=== PATIENT | female | born 1955 | race Caucasian/White ===

== ENCOUNTER 2017-11-18 01:24 | Outpatient (CLI) | payer BC, SELFPAY ==
[2017-11-18 07:57] LABS: Hemoglobin A1C 5.7 % (4.5-6.2)
== END 2017-11-18 01:44 ==
DX: E11.9 Type 2 diabetes mellitus without complications (principal); I10 Essential (primary) hypertension
CPT/HCPCS: 36415; 83036

== ENCOUNTER 2018-04-23 01:19 | Outpatient (CLI) | payer MEDICARE, SELFPAY ==
[2018-04-23 08:37] LABS: Hemoglobin A1C 5.9 % (4.5-6.2)
[2018-04-23 08:42] LABS: ALT 31 U/L (12-78); AST 18 U/L (15-37); Albumin 3.6 g/dL (3.4-5.0); Alkaline Phosphatase 77 U/L (46-116); Anion Gap 11.7 mmol/L (3-11); BUN 16 mg/dL (7-18); Bilirubin, Total 0.4 mg/dL (0.2-1.0); CO2 25.3 mmol/L (21.0-32.0); CREATININE 0.73 mg/dL (0.55-1.02); Calcium 9.3 mg/dL (8.5-10.1); Chloride 104 mmol/L (98-107); Glucose 100 mg/dL (70-100); Potassium 3.7 mmol/L (3.5-5.1); Sodium 141 mmol/L (136-145); Total Protein 7.7 g/dL (6.4-8.2)
== END 2018-04-23 01:39 ==
DX: E11.9 Type 2 diabetes mellitus without complications (principal); I10 Essential (primary) hypertension
CPT/HCPCS: 36415; 80053; 83036

== ENCOUNTER 2019-02-17 02:40 | Outpatient (CLI) | payer MEDICARE, SELFPAY ==
--- NOTE | 2019-02-17 07:17 | DI.MAMMO_ITS ---
EXAM: MG MAMMO SCREENING CLINICAL HISTORY: screening,Z12.31. TECHNIQUE: Full field digital CC and MLO mammographic images were obtained with 3D tomosynthesis and utilizing computer aided detection (CAD). COMPARISON: 2016 FINDINGS: Breast Density - Category B - Scattered areas of fibroglandular density Masses/Architectural Distortion: None seen. Microcalcifications: No suspicious pleomorphic-type calcifications are seen. Skin Thickening/Nipple Retraction: None. Axilla: Unremarkable. IMPRESSION: 1. BI-RADS category 1, negative. No significant interval change with no specific features of maligna ncy noted. 2. Unless there is more urgent need, screening mammography is recommended, as per [employer] guidelines. BI-RADS Cat 1 - Negative Breast Density - Category B - Scattered areas of fibroglandular density A negative radiographic report should not delay biopsy if a dominant or clinically suspicious mass is present. Up to ten percent of cancers are not identified on mammography. A negative report may reinforce clinical impression. Adenosis and dense breasts may obscure an underlying neoplasm. False positive reports average 6 to 10%. Patient will receive a letter notifying them of these results.
== END 2019-02-17 03:00 ==
DX: Z12.31 Encounter for screening mammogram for malignant neoplasm of breast (principal)
CPT/HCPCS: 77063; 77067

== ENCOUNTER 2019-04-17 00:32 | Outpatient (CLI) | payer MEDICARE, SELFPAY ==
[2019-04-17 07:56] LABS: Hemoglobin A1C 5.9 % (3.8-5.6)
[2019-04-17 08:23] LABS: ALT 27 U/L (14-59); AST 16 U/L (15-37); Albumin 3.8 g/dL (3.4-5.0); Alkaline Phosphatase 95 U/L (46-116); Anion Gap 12.1 mmol/L (3-11); BUN 22 mg/dL (7-18); Bilirubin, Total 0.4 mg/dL (0.2-1.0); CO2 25.9 mmol/L (21.0-32.0); CREATININE 0.77 mg/dL (0.55-1.02); Calcium 9.6 mg/dL (8.5-10.1); Calculated LDL 108 mg/dL (<100); Chloride 104 mmol/L (98-107); Cholesterol 211 mg/dL (<200); Glucose 103 mg/dL (74-106); HDL Cholesterol 45 mg/dL (40-60); Potassium 3.7 mmol/L (3.5-5.1); Sodium 142 mmol/L (136-145); Total Protein 7.5 g/dL (6.4-8.2); Triglyceride 290 mg/dL (<150)
== END 2019-04-17 00:52 ==
DX: E03.9 Hypothyroidism, unspecified (principal); I10 Essential (primary) hypertension; E78.5 Hyperlipidemia, unspecified; E11.9 Type 2 diabetes mellitus without complications
CPT/HCPCS: 36415; 80053; 80061; 83036

== ENCOUNTER → 2019-11-13 07:50 | Outpatient (BNVA) | payer MEDICARE, SELFPAY | PROVIDERS: Visit Provider Physical Therapy Assistant | DX: Z12.11 Encounter for screening for malignant neoplasm of colon (principal); Z86.010 Personal history of colon polyps; E11.9 Type 2 diabetes mellitus without complications; Z79.84 Long term (current) use of oral hypoglycemic drugs; I10 Essential (primary) hypertension ==

== ENCOUNTER 2019-12-07 07:10 | Day surgery (SDC) | payer MEDICARE, SELFPAY ==
--- NOTE | 2019-12-07 06:38 | COLE_ITS ---
Date of service: 12/07/19 Time of Service: 09:05 Colonoscopy Report Date of procedure: 12/07/19 Pre-op diagnosis general: Hx of colon polyps Post-op diagnosis procedure note: same (polyps x4, mild diverticulosis) Procedure: Colonoscopy with polypectomy Surgeon: Rubi Tim Anesthesia proc note operative: other (General/ASA 2/Herman Valenzuela, [employer]) Estimated blood loss (mL): 3 Pathology: other (Cecal P, Ascending polyp x2, Transverse polyp) Complications: None Disposition: same day Indications: The patient is here for Colonoscopy pre-op. Her last screening was in 2017 and was remarkable for tubular adenoma's. She has no family history of colon cancer. She has not had any bowel habit changes. -Discussed colonoscopy bowel prep as well as the procedure. Discussed possible complications of the procedure to include bleeding, pain, perforation, missed small lesion/polyp, sore throat, aspiration and adverse reaction to the medications. Questions were answered to patient?s satisfaction. No guarantees were implied or given. Prep: Miralax/Dulcolax Procedure Start Time: :05 Procedure End Time: :45 Retraction Time: 29 minutes Findings: Polyps and mild diverticulosis of the sigmoid colon Procedure Description: After informed consent was obtained the patient was taken to the procedure room and placed in a left decubitous position. Monitors were applied and a time out was done. The patients name, date of , proced ure, allergies to medications and metal in their body was reviewed. The patient was then sedated. Once sedated and comfortable a rectal exam was done. External exam was normal. Internal exam revealed a normal sphincter tone and no palpable masses. The scope was then introduced and retro-flexed. No internal hemorrhoids were identified. The scope was then advanced to the cecum without difficulty. The ileocecal valve and appendiceal orifice were identified. The prep was adequate. The scope was then slowly retracted over 26 minutes back into the rectum. Polyps were removed with cold forceps in the cecum, ascending colon, distal ascending colon and transverse colon. There was some mild diverticulosis of the sigmoid colon as well. The scope was removed and the patient was woken up and taken back to Same day surgery in stable condition. The patient tolerated the procedure well and there were no immediate complications. Follow up: The patient should follow up in 5 years unless they develop changes in bowel habits or other new gastrointestinal complaints.
--- NOTE | 2019-12-07 06:39 | W.PM.DSUDISC ---
Discharge Plan Disposition Patient Disposition: HOME Condition: Good Discharge Details Reason For Visit: Colonoscopy Attending Provider: Rubi Tmi Primary Care Provider: Cristina Buenrostro Home Meds and New Rx's Prescriptions: Continued losartan 50 mg tablet 50 mg PO DAILY Qty: 90 RF: 4 sertraline 50 mg tablet 50 mg PO DAILY Qty: 90 RF: 3 albuterol sulfate 90 mcg/actuation HFA aerosol inhaler 2 puff IH QID PRN (Reason: shortness of breath or wheezing) Qty: 8.5 RF: 1 hydrochlorothiazide 25 mg tablet 25 mg PO DAILY Qty: 90 RF: 3 atorvastatin 20 mg tablet 20 mg PO DAILY Qty: 90 RF: 3 metformin [Glucophage XR] 500 mg tablet extended release 24 hr 500 mg PO QAM RF: 0 Discontinued bisacodyl [Dulcolax (bisacodyl)] 5 mg tablet,delayed release (DR/EC) 5 mg PO ONCE Qty: 4 RF: 0 polyethylene glycol 3350 17 gram/dose powder 238 g PO ONCE Qty: 238 RF: 0 No Action (DME) lancets [OneTouch UltraSoft Lancets] Misc 1 ea Miscellaneous TID Qty: 100 RF: 3 (DME) Blood Glucose Test Strip See Rx Instructions .ROUTE .MEDSUPPLY Qty: 100 RF: 12 Discharge Instructions Instructions: Diverticulosis (DC), Colorectal Polyps (DC) Additional Instructions: Findings: Polyps x4 Mild Diverticulosis Follow up: 5 years Please call if you develop: fevers >101.5 Nausea or Vomiting Abdominal pain that is not transient DAY SURGERY UNIT POST ENDOSCOPY INSTRUCTIONS 1. Because there will be medication in your system for the next 24 hours, you may feel a little sleepy. Your coordination will be affected. Therefore: a. Do not drive or operate dangerous equipment for 24 hours. b. Do not drink alcohol beverages for 24 hours (not even beer). c. Plan to go home and rest for the day. 2. Generally there are no restrictions on your activity after a day or so has gone by, but you may feel a bit fatigued for a few days. 3 After you arrive home you may have a light meal and return to a normal diet as you can tolerate it without feeling sick to your stomach. 4. After surgery, you may feel pain or discomfort. This should be only transient, but if it persists please contact your doctor. 5. If there are any questions regarding the findings of your procedure, please feel free to contact your doctor. 6. If you are unable to contact your doctor with a problem, contact the hospital at [phone]. 7. Continue all your regular medications unless directed otherwise. I understand the above instructions and have no questions. Signature of Patient or Responsible Adult Escort Date/Time Name of Responsible Adult Escort Signature of Nurse Date/Time Activity:: Activity as Tolerated Diet:: High Fiber Diet Discharge Orders Discharge Orders: Discharge Order (Routine); Ordered 12/07/19 Ordered By: Rubi Tim
[2019-12-07 07:29] VITALS: BP 117/80; PULSE 97; RESP 18; TEMP 36.6; O2SAT 96
[2019-12-07] MEDS: Lactated Ringers 1,000 ML 80 ML IV ×2 (07:50→09:08)
--- NOTE | 2019-12-07 09:20 | BOWEL_PTH ---
PATIENT: Khushi Toth LOC: [facility] U#:[id number] AGE/SX: 64/F ROOM: RE12/07/[address]: Rubi Tim MD : [id number] BED: DIS: 12/07/2019 SPEC #: [id number] RECD: 12/07/19 13:01 STATUS: [place] RE #: [id number] CONSUELO: 12/07/19 09:[address]: Rubi Tim DEPT: Surgical Specimen RECD BY: Josephine Burnett ENTERED: 12/07/19 13:02 SP TYPE: Bowel OTHR DR: Cristina Buenrostro APRN Tissues: 1 - BIOPSY BOWEL 2 - BIOPSY BOWEL 3 - BIOPSY BOWEL 4 - BIOPSY BOWEL Procedures: GROSS AND MICRO LEVEL 4 Comments: [id number]
[2019-12-07 10:22] VITALS: BP 117/69; PULSE 85; RESP 18; TEMP 36.6; O2SAT 95
== END 2019-12-07 10:42 | disposition home or self-care (01) ==
LOC: SUR 07:12
PROVIDERS: Visit Provider Surgery
PROC: 0DJD8ZZ Inspection of Lower Intestinal Tract, Via Natural or Artificial Opening Endoscopic (ICD-10-PCS; CPT 45378; principal; 2019-12-07 08:30)
DX: Z12.11 Encounter for screening for malignant neoplasm of colon (principal); D12.0 Benign neoplasm of cecum; D12.2 Benign neoplasm of ascending colon; D12.3 Benign neoplasm of transverse colon; Z86.010 Personal history of colon polyps; E11.9 Type 2 diabetes mellitus without complications; I10 Essential (primary) hypertension; K57.30 Diverticulosis of large intestine without perforation or abscess without bleeding
CPT/HCPCS: 45380; 88305; J2001

== ENCOUNTER 2020-04-26 02:32 | Outpatient (CLI) | payer MEDICARE, SELFPAY ==
[2020-04-26 07:36] LABS: Hemoglobin A1C 6.3 % (<5.7)
[2020-04-26 08:35] LABS: ALT 33 U/L (14-59); AST 21 U/L (15-37); Albumin 3.8 g/dL (3.4-5.0); Alkaline Phosphatase 94 U/L (46-116); Anion Gap 10.5 mmol/L (3-11); BUN 24 mg/dL (7-18); Bilirubin, Total 0.4 mg/dL (0.2-1.0); CO2 28.5 mmol/L (21.0-32.0); CREATININE 0.9 mg/dL (0.55-1.02); Calcium 9.5 mg/dL (8.5-10.1); Chloride 101 mmol/L (98-107); Cholesterol 235 mg/dL (<200); Glucose 106 mg/dL (74-106); HDL Cholesterol 46 mg/dL (40-60); Potassium 3.4 mmol/L (3.5-5.1); Sodium 140 mmol/L (136-145); Total Protein 7.8 g/dL (6.4-8.2); Triglyceride 532 mg/dL (<150)
[2020-04-26 08:46] LABS: LDL CHOLESTEROL 103 mg/dL (<100)
== END 2020-04-26 02:33 | disposition home or self-care (01) ==
LOC: LBO 02:32
DX: I10 Essential (primary) hypertension (principal); E11.9 Type 2 diabetes mellitus without complications; E78.5 Hyperlipidemia, unspecified
CPT/HCPCS: 36415; 80053; 80061; 83721; 83036

== ENCOUNTER 2020-05-10 01:37 | Outpatient (CLI) | payer MEDICARE, SELFPAY ==
--- NOTE | 2020-05-10 06:30 | DI.MAMMO_ITS ---
EXAM: MG MAMMO SCREENING CLINICAL HISTORY: screening,Z12.39 TECHNIQUE: Bilateral full field digital CC and MLO mammographic images were obtained with 3D tomosyn thesis and utilizing computer aided detection (CAD). COMPARISON: Available for comparison. FINDINGS: Masses/Architectural Distortion: None seen. Microcalcifications: No suspicious pleomorphic-type are seen. Skin Thickening/Nipple Retraction: None. IMPRESSION: 1. No significant interval change with no specific features of malignancy noted. 2. Unless there is more urgent need, screening mammography is recommended, as per [employer] guidelines. BI-RADS Category 1 - Negative Breast Density - Category B - Scattered areas of fibroglandular density Breast density category C or D implies that the patient has dense breast tissue. Dense breast tissue is very common and is not abnormal but dense breast tissue can make it harder to find cancer on a ma mmogram. Also, dense breast tissue may increase their breast cancer risk. This information about the result of the mammogram report was provided to the patient to raise their awareness. Use this report when you speak with the patient about their risks for breast cancer, which includes their family hist ory. At that time, you may recommend for more screening tests (Ultrasound or MRI) as they might be us eful based on their risk. A negative radiographic report should not delay biopsy if a dominant or clinically suspicious mass is present. Up to ten percent of cancers are not identified on mammography. A negative report may reinforce clinical impression. Adenosis and dense breasts may obscure an underlying neoplasm. False positive reports average 6 to 10%. Patient will receive a letter notifying them of these results.
== END 2020-05-10 01:57 ==
DX: Z12.31 Encounter for screening mammogram for malignant neoplasm of breast (principal)
CPT/HCPCS: 77063; 77067

== ENCOUNTER 2021-04-20 02:49 | Outpatient (CLI) | payer MEDICARE, SELFPAY ==
[2021-04-20 09:48] LABS: ALT 31 U/L (14-59); AST 17 U/L (15-37); Albumin 3.8 g/dL (3.4-5.0); Alkaline Phosphatase 102 U/L (46-116); Anion Gap 11.8 mmol/L (3-11); BUN 22 mg/dL (7-18); Bilirubin, Total 0.3 mg/dL (0.2-1.0); CO2 27.2 mmol/L (21.0-32.0); CREATININE 0.9 mg/dL (0.55-1.02); Calcium 9.2 mg/dL (8.5-10.1); Calculated LDL 96 mg/dL (<100); Chloride 101 mmol/L (98-107); Cholesterol 219 mg/dL (<200); Glucose 102 mg/dL (74-106); HDL Cholesterol 45 mg/dL (40-60); Potassium 3.7 mmol/L (3.5-5.1); Sodium 140 mmol/L (136-145); Total Protein 7.6 g/dL (6.4-8.2); Triglyceride 390 mg/dL (<150)
== END 2021-04-20 02:50 | disposition home or self-care (01) ==
LOC: LBO 02:49
DX: E78.5 Hyperlipidemia, unspecified (principal); E11.9 Type 2 diabetes mellitus without complications; I10 Essential (primary) hypertension
CPT/HCPCS: 36415; 80053; 80061

== ENCOUNTER → 2021-08-08 00:38 | Outpatient (CLI) | payer MEDICARE, SELFPAY ==
--- NOTE | 2021-08-08 07:00 | DI.MAMMO_ITS ---
Exam(s) MAMMO SCREENING EXAM: MAMMO SCREENING CLINICAL HISTORY: screening.z12.39 TECHNIQUE: Mammograms were interpreted according to the usual protocol including computer analysis w 3rdKind CAD system, tomosynthesis and C-view imaging. COMPARISON: 2016 through 2020 FINDINGS: The breasts are composed of scattered fibroglandular densities, Breast Density category B. No suspicious masses or suspicious microcalcifications are seen. No skin thickening or abnormal axillary lymph nodes are seen. There has been no significant change from prior exams. IMPRESSION: BI-RADS Category 1, Negative mammogram Yearly screening mammography is recommended. Breast Density - Category B, scattered fibroglandular densities. A negative radiographic report should not delay biopsy if a dominant or clinically suspicious mass is present. Up to ten percent of cancers are not identified on mammography. A negative report may reinforce clinical impression. Adenosis and dense breasts may obscure an underlying neoplasm. False positive reports average 6 to 10%. Patient will receive a letter notifying them of these results.
== END ==
DX: Z12.31 Encounter for screening mammogram for malignant neoplasm of breast (principal)
CPT/HCPCS: 77063; 77067

== ENCOUNTER 2021-09-15 08:08 | Day surgery (SDC) | payer MEDICARE, SELFPAY ==
[2021-09-15] MEDS: Tropicam./Phenyleph. (1/2.5%) 5 ML BTL OS ×3 (08:37→08:50)
[2021-09-15 08:39] VITALS: BP 142/81; PULSE 87; RESP 16; TEMP 36.6; O2SAT 98
--- NOTE | 2021-09-15 09:16 | W.ANESPRE ---
General Info Date of Service Date Performed: 09/15/21 Height: 5 ft Weight: 60.8 kg Body Mass Index (BMI): 26.2 Surgical Procedure: Operation Date: 09/15/21 10:40 Proposed Procedure Side Surgeon p Cataract Extraction with IOL Implant Left Gavin Fletcher MD Meds Allergies and Home Medications Allergies Allergy/AdvReac Type Severity Reaction Status Date / Time No Known Allergies Allergy Verified 09/15/21 08:27 Home Medication Medication Instructions Recorded albuterol sulfate 90 mcg/actuation 2 puff inhalation QID PRN 04/30/19 aerosol inhaler shortness of breath or wheezing #8.5 grams blood sugar diagnostic (Blood #100 ea 11/03/20 Glucose Test strips) lancets 33 gauge (OneTouch Delica #100 ea 11/15/20 Lancets) hydrochlorothiazide 25 mg tablet 25 mg PO DAILY #90 tab-caps 03/25/21 sertraline 50 mg tablet 50 mg PO DAILY #90 tabs 03/28/21 losartan 50 mg tablet 50 mg PO DAILY #90 tab-caps 05/09/21 metformin 500 mg tablet,extended 500 mg PO QAM #90 tabs 05/09/21 release 24 hr atorvastatin 40 mg tablet 40 mg PO DAILY #90 tabs 08/01/21 Current Visit Medications: Current Medications Generic Name Dose Route Start Last Admin Trade Name Freq PRN Reason Stop Dose Admin Acetaminophen 1,000 mg 09/15/21 06:00 Acetaminophen 500 Mg Tab PO Q4H PRN PRN Miscellaneous Medication 0 ml 09/15/21 06:00 Prednisolone 1%, Moxifloxacin 0.5%, Nepafenac 0.1% 5ml Btl OS DIRECTED [facility] Miscellaneous Medication 0 ml 09/15/21 06:00 09/15/21 08:50 Tropicam./Phenyleph. 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.6 Hyperlipidemia 05/06/08 E78.5 Essential hypertension 05/16/16 I10 Diabetes mellitus 05/06/08 E11.9 Medical History Medical History CAP (community acquired pneumonia) Surgical History Surgical History Colonoscopy - MAC (08/22/16) History of uvulectomy pt .reports L side of nose procedure at same time Hx of tubal ligation Tobacco Smoking/Tobacco Use Status: Never Passive smoking exposure: Yes Alcohol Alcohol Intake: current Alcohol intake frequency: holidays/special occasions only Alcohol type: beer Substance Use Substance use: Never Substance use type: does not use Counseling provided: none Details: alcohol: joseline Vital Signs and Lab Results Vital Signs Most Recent Vital Signs in EMR: Most Recent Vital Signs Temp Pulse Resp BP Pulse Ox 36.6 C 87 16 142/81 H 98 09/15/21 08:39 09/15/21 08:39 09/15/21 08:39 09/15/21 08:39 09/15/21 08:39 Point of Care Results Point of Care Results: Finger Stick Blood Glucose 110 09/15/21 08:33 Lab Results Blood Type / Crossmatch: No Data to Display Complete Blood Count: No Data to Display Complete Metabolic Panel: No Data to Display Liver Function Panel: No Data to Display Coagulation Panel: No Data to Display Cardiac Panel: No Data to Display Arterial Blood Gas: No Data to Display Venous Blood Gas: No Data to Display Pancreas Panel: No Data to Display Thyroid Panel: No Data to Display Infectious Disease: No Data to Display Blood Cultures: No Data to Display Toxicology Panel: No Data to Display Anesthesia Assessment and Plan Anesthesia History Personal History: No History of Anesthesia Complications Family History: No Family History of Anesthesia Complications Exercise Tolerance Exercise Tolerance: Metabolic Equivalents>4 Pertinent Negatives Pertinent Negatives: No Symptoms of GERD, No Major Cardiovascular Symptoms or Complaints and No Major Pulmonary Symptoms or Complaints Cardiac & Pulmonary Exam Cardiac Exam: Normal S1/S2 Heart Sounds Pulmonary Exam: Clear Bilateral Breath Sounds Implantable Cardiac Device Does patient have a Pacemaker or an ICD?: No Airway Exam Known Difficult Airway: No Mallampati Class: 3 Mouth Opening: Narrow (< 3cm) Thyromental Distance: Greater than 3 cm Neck Range of Motion: Full ROM Neck Circumference: Normal Teeth Condition: Normal Dentition ASA Classification ASA Score: ASA 2 Emergency Case?: No NPO Status NPO Status: NPO Clears >2 hours, Solids >8 hours Anesthesia Plan Resuscitation Status: Full Code Anesthesia Technique: MAC Anesthesia Airway Planned: Natural Airway Monitors Used: Standard Monitors
[2021-09-15] MEDS: Tetracaine 0.5% 4 ML BTL OS (09:50)
[2021-09-15] MEDS: Lidocaine 2% Jelly 6 ML SYR (09:50)
[2021-09-15] MEDS: Povidone-Iodine Ophth 30 ML BTL (09:52)
[2021-09-15 09:53] VITALS: BMI 26.2
[2021-09-15] MEDS: Duovisc Viscoelastic System EACH 1 EACH (09:56)
[2021-09-15] MEDS: Balanced Salt Soln.-PLUS 500 ML BAG (09:56)
--- NOTE | 2021-09-15 10:19 | W.PM.DSUDISC ---
Discharge Plan Disposition Patient Disposition: HOME Condition: Good Discharge Details Attending Provider: Gavin Fletcher Primary Care Provider: Cristina Buenrostro Home Meds and New Rx's Prescriptions: No Action albuterol sulfate 90 mcg/actuation HFA aerosol inhaler 2 puff IH QID PRN (Reason: shortness of breath or wheezing) Qty: 8.5 1RF (DME) Blood Glucose Test Strip See Rx Instructions .ROUTE .MEDSUPPLY Qty: 100 12RF Label Comments: pt. checked BS today, 107 Rx Instructions: As directed atorvastatin 40 mg tablet 40 mg PO DAILY Qty: 90 3RF (DME) lancets [OneTouch Delica Lancets] 33 gauge misc See Rx Instructions .ROUTE .MEDSUPPLY Qty: 100 4RF Rx Instructions: As directed E119.5 Daily testing hydrochlorothiazide 25 mg tablet 25 mg PO DAILY Qty: 90 3RF sertraline 50 mg tablet 50 mg PO DAILY Qty: 90 3RF metformin 500 mg tablet extended release 24 hr 500 mg PO QAM Qty: 90 4RF losartan 50 mg tablet 50 mg PO DAILY Qty: 90 4RF Discharge Instructions Stand Alone Forms: Post-op Topical Cataract, Owen Kaye (DSU) Discharge Orders Discharge Orders: Discharge Order (Routine); Ordered 09/15/21 Ordered By: Gavin Fletcher DS: Diagnosis Discharge Diagnosis (1) Nuclear sclerotic cataract of left eye: Status: Resolved (2) Posterior subcapsular age-related cataract of left eye: Status: Resolved
--- NOTE | 2021-09-15 10:20 | ROE_ITS ---
Date of service: 09/15/21 Time of Service: 10:20 Operative Note Operative Note DATE OF PROCEDURE: 09/15/21 PRE-OP DIAGNOSIS: Nuclear/posterior subcapsular cataract, left eye POST-OP DIAGNOSIS: same PROCEDURE: Cataract extraction using phacoemulsification with intraocular lens implant, left eye SURGEON: Gavin Fletcher ANESTHESIA TYPE: Local By Surgeon and MAC Refer to Anesthesia Record PATHOLOGY: none sent COMPLICATIONS: None Patient was transported to: same day Patient's condition: stable Implants: Ayush and Ayush / [employer] Tecnis [id number] Indications: Progressive decreased vision due to cataract, left eye Procedure Description: CATARACT SURGERY OPERATIVE REPORT PREOPERATIVE DIAGNOSIS: 1. Nuclear/posterior subcapsular cataract, left eye POSTOPERATIVE DIAGNOSIS: Same OPERATION: 1. Cataract extraction using phacoemulsification with posterior chamber intraocular lens implant, left eye. IOL: IOL Pipe Coverer And Insulator/Model: Ayush & Ayush / [employer] Tecnis [id number] IOL Power: + 14.5 diopters IOL Serial Number: [id number] Optic Diameter: 6.0 mm Haptic/Overall Diameter: 13.0 mm PHACO INFO: Harley [employer]urion Vision System with OZil and Active Fluidics Cumulative Dispersed Energy (CDE): 16.15 seconds SURGEON: Gavin Fletcher MD, ARAM ANESTHESIA: Monitored A [facility] (MAC), with local sub-tenon's anesthetic infiltration COMPLICATIONS: None SPECIMENS: None INDICATIONS FOR PROCEDURE: The patient is a 66-year-old lady with history of diminished visual acuity in her left eye secondary to the development of significant nuclear/posterior subcapsular cataract. She felt she was significantly symptomatic that she desired cataract surgery and attempt to improve and maximize her vision. PROCEDURE: The correct surgical eye was identified and marked as the left eye and the pupil was dilated in the preoperative area using mydriatics and cycloplegics. The dilated pupil size was 8.0 mm. . The patient elected to proceed without oral sedation. The patient was brought to the operating room where cardiopulmonary monitoring was instituted and surgical time-out was performed, confirming the correct operative eye and IOL power. Topical anesthesia was administered and ophthalmic povidone-iodine 5% was instilled into the conjunctival fornices. Lidocaine gel was applied to the cornea and the janelle-ocular area was prepped with Betadine 10% solution and draped in the usual sterile fashion for intraocular surgery, including an aperture drape. A Tegaderm transparent film dressing was cut in half and used to cover the lashes and lid margins. Care was taken to sequester the lashes and lid margins under the Tegaderm dressing. A lid speculum was placed between the lids of the operative eye and the Harley Lux[employer] Revalia operating microscope was maneuvered into position. Rodney scissors were then used to make a conjunctival buttonhole approximately 6mm posterior to the limbus in the inferonasal quadrant. Blunt dissection was carried out to expose bare sclera, and a blunt-tipped sub-tenon?s anesthesia cannula was introduced and passed posteriorly along the globe where non- preserved plain lidocaine was injected into posterior sub-Tenon?s space. A sideport knife was used to make a paracentesis port superiorly/superiortemporally. Intraocular phenylephrine/lidocaine was injected int the anterior chamber.. The anterior chamber was filled with viscoelastic. A keratome knife was used to construct a 2-plane near-clear corneal tunnel extending 2.0mm into clear cornea temporally. A flap was raised on the anterior capsule and capsulorhexis forceps were used to complete a continuous curvilinear capsulorhexis of 5.0 mm. Balanced salt solution was then used to perform cortical cleaving hydrodissection and nuclear hydrodelineation until the lens could be freely rotated within the capsular bag. The lens nucleus was then disassembled and removed within the capsular bag and iris plane using phacoemulsification. Residual cortical material was removed using the 45-degree angled silicone I/A tip with 0.3mm port. The posterior capsule was carefully polished to remove as much residual lens epithelial cells as safely possible. The capsular bag was then inflated and the anterior chamber deepened with viscoelastic. The lens implant described above was inserted into the capsular bag using the [employer] [place] Injector. A Kuglen hook was used to dial the IOL into position. Residual viscoelastic was then removed first from posterior to the IOL, then from the anterior chamber using the I/A handpiece. The lens implant was noted to center nicely within the capsular bag. The incisions were stromally hydrated, and the anterior chamber was reformed using BSS. Then 0.5cc of moxifloxacin 1.0mg/ml were injected into the capsular bag and anterior chamber. The incisions were checked with a Weck spear and found to be secure. Several drops of ophthalmic povidone-iodine 5% were then applied to the eye followed by two drops of Imprimis combination prednisolone/moxifloxacin/nepafenac solution. The drapes were removed and a clear plastic protective eye shield was placed over the eye. The patient was then returned to Same Day Surgery in stable condition.
[2021-09-15 10:28] VITALS: BP 131/86; PULSE 82; RESP 16; TEMP 36.3; O2SAT 97
--- NOTE | 2021-09-15 10:34 | W.ANESPOSTOP ---
Postoperative Evaluation Date, Time and Location Date Performed: 09/15/21 Time Performed: 10:29 Patient Location: Day Surgery Unit Vital Signs Most Recent Imported Vital Signs: Most Recent Vital Signs Temp Pulse Resp BP Pulse Ox 36.3 C L 82 16 131/86 97 09/15/21 10:28 09/15/21 10:28 09/15/21 10:28 09/15/21 10:28 09/15/21 10:28 Pain Score Most Recent Pain Score: Most Recent Pain Score Pain Level 0 09/15/21 10:28 Assessment Mental Status: Awake (Alert & Oriented to Patient Baseline) Airway and Respiratory Function: Patent airway with normal (patient baseline) respiratory exam Cardiovascular Function: Hemodynamically Stable Hydration Status: Adequately Hydrated Nausea & Vomiting: No Nausea or Vomiting Pain: Pt. Denies Any Pain Peripheral Nerve Block: Patient did not receive a nerve block
== END 2021-09-15 10:37 | disposition home or self-care (01) ==
PROVIDERS: Visit Provider Ophthalmology
PROC: (CPT 66984; principal; 2021-09-15 10:30)
DX: H25.042 Posterior subcapsular polar age-related cataract, left eye (principal); I10 Essential (primary) hypertension; E11.9 Type 2 diabetes mellitus without complications
CPT/HCPCS: 66984; V2632

== ENCOUNTER 2021-09-29 09:35 | Day surgery (SDC) | payer MEDICARE, SELFPAY ==
[2021-09-29] MEDS: Tropicam./Phenyleph. (1/2.5%) 5 ML BTL OD ×3 (09:52→10:07)
[2021-09-29 09:53] VITALS: BP 125/66; PULSE 84; RESP 18; TEMP 36.2; O2SAT 98
--- NOTE | 2021-09-29 10:06 | ANES.PREOP_ITS ---
General Info Date of Service Date Performed: 09/29/21 Height: 5 ft Weight: 61.3 kg Body Mass Index (BMI): 26.4 Surgical Procedure: Operation Date: 09/29/21 12:40 Proposed Procedure Side Surgeon p Cataract Extraction with IOL Implant Right Gavin Fletcher MD Meds Allergies and Home Medications Allergies Allergy/AdvReac Type Severity Reaction Status Date / Time No Known Allergies Allergy Verified 09/27/21 15:11 Home Medication Medication Instructions Recorded albuterol sulfate 90 mcg/actuation 2 puff inhalation QID PRN 04/30/19 aerosol inhaler shortness of breath or wheezing #8.5 grams blood sugar diagnostic (Blood #100 ea 11/03/20 Glucose Test strips) lancets 33 gauge (OneTouch Delica #100 ea 11/15/20 Lancets) hydrochlorothiazide 25 mg tablet 25 mg PO DAILY #90 tab-caps 03/25/21 sertraline 50 mg tablet 50 mg PO DAILY #90 tabs 03/28/21 losartan 50 mg tablet 50 mg PO DAILY #90 tab-caps 05/09/21 metformin 500 mg tablet,extended 500 mg PO QAM #90 tabs 05/09/21 release 24 hr atorvastatin 40 mg tablet 40 mg PO DAILY #90 tabs 08/01/21 Current Visit Medications: Current Medications Generic Name Dose Route Start Last Admin Trade Name Freq PRN Reason Stop Dose Admin Acetaminophen 1,000 mg 09/29/21 06:00 Acetaminophen 500 Mg Tab PO Q4H PRN PRN Miscellaneous Medication 0 ml 09/29/21 06:00 Prednisolone 1%, Moxifloxacin 0.5%, Nepafenac 0.1% 5ml Btl OD DIRECTED COUNT INCLUDES THE [facility] Miscellaneous Medication 0 ml 09/29/21 06:00 Tropicam./Phenyleph. (1/2.5%) 5 Ml Btl OD DIRECTED RUBI Tetracaine HCl 0 ml 09/29/21 06:00 Tetracaine 0.5% 4 Ml Btl OD DIRECTED RUBI PFSH Active Problems Active Problems: Problem Status Onset Code Posterior subcapsular age-related cataract of left eye H25.042 Nuclear sclerotic cataract of left eye H25.12 Tubulovillous adenoma of colon 08/22/16 D12.6 Hyperlipidemia 05/06/08 E78.5 Essential hypertension 05/16/16 I10 Diabetes mellitus 05/06/08 E11.9 Medical History Medical History CAP (community acquired pneumonia) Surgical History Surgical History Colonoscopy - MAC (08/22/16) History of uvulectomy pt .reports L side of nose procedure at same time Hx of tubal ligation Tobacco Smoking/Tobacco Use Status: Never Passive smoking exposure: Yes Alcohol Alcohol Intake: current Alcohol intake frequency: holidays/special occasions only Alcohol type: beer Substance Use Substance use: Never Substance use type: does not use Counseling provided: none Details: alcohol: joseline Vital Signs and Lab Results Vital Signs Most Recent Vital Signs in EMR: Most Recent Vital Signs Temp Pulse Resp BP Pulse Ox 36.2 C L 84 18 125/66 98 09/29/21 09:53 09/29/21 09:53 09/29/21 09:53 09/29/21 09:53 09/29/21 09:53 Lab Results Blood Type / Crossmatch: No Data to Display Complete Blood Count: No Data to Display Complete Metabolic Panel: No Data to Display Liver Function Panel: No Data to Display Coagulation Panel: No Data to Display Cardiac Panel: No Data to Display Arterial Blood Gas: No Data to Display Venous Blood Gas: No Data to Display Pancreas Panel: No Data to Display Thyroid Panel: No Data to Display Infectious Disease: No Data to Display Blood Cultures: No Data to Display Toxicology Panel: No Data to Display Anesthesia Assessment and Plan Anesthesia History Personal History: No History of Anesthesia Complications Family History: No Family History of Anesthesia Complications Exercise Tolerance Exercise Tolerance: Metabolic Equivalents>4 Pertinent Negatives Pertinent Negatives: No Major Cardiovascular Symptoms or Complaints and No Major Pulmonary Symptoms or Complaints Cardiac & Pulmonary Exam Cardiac Exam: Normal S1/S2 Heart Sounds Pulmonary Exam: Clear Bilateral Breath Sounds Implantable Cardiac Device Does patient have a Pacemaker or an ICD?: No Airway Exam Known Difficult Airway: No Mallampati Class: 3 Mouth Opening: Narrow (< 3cm) Thyromental Distance: Greater than 3 cm Neck Range of Motion: Full ROM Neck Circumference: Normal Teeth Condition: Normal Dentition ASA Classification ASA Score: ASA 2 Emergency Case?: No NPO Status NPO Status: NPO Clears >2 hours, Solids >8 hours Anesthesia Plan Resuscitation Status: Full Code Anesthesia Technique: MAC Anesthesia Airway Planned: Natural Airway Monitors Used: Standard Monitors Preoperative Comments:: Gluc check 122 at home
[2021-09-29 10:36] VITALS: BMI 26.4
[2021-09-29] MEDS: Tetracaine 0.5% 4 ML BTL OD (11:09)
[2021-09-29] MEDS: Povidone-Iodine Ophth 30 ML BTL (11:09)
[2021-09-29] MEDS: Lidocaine 2% Jelly 6 ML SYR (11:10)
[2021-09-29] MEDS: Balanced Salt Soln.-PLUS 500 ML BAG (11:15)
[2021-09-29 11:32] VITALS: BP 128/73; PULSE 83; RESP 16; TEMP 36.3; O2SAT 95
--- NOTE | 2021-09-29 11:33 | W.PM.DSUDISC ---
Discharge Plan Disposition Patient Disposition: HOME Condition: Good Discharge Details Attending Provider: Gavin Fletcher Primary Care Provider: Cristina Buenrostro Home Meds and New Rx's Prescriptions: No Action albuterol sulfate 90 mcg/actuation HFA aerosol inhaler 2 puff IH QID PRN (Reason: shortness of breath or wheezing) Qty: 8.5 1RF Label Comments: 09/29/21 pt reports she last took 5 months ago (DME) Blood Glucose Test Strip See Rx Instructions .ROUTE .MEDSUPPLY Qty: 100 12RF Label Comments: pt. checked BS today, 107 Rx Instructions: As directed atorvastatin 40 mg tablet 40 mg PO DAILY Qty: 90 3RF (DME) lancets [OneTouch Delica Lancets] 33 gauge misc See Rx Instructions .ROUTE .MEDSUPPLY Qty: 100 4RF Rx Instructions: As directed E119.5 Daily testing hydrochlorothiazide 25 mg tablet 25 mg PO DAILY Qty: 90 3RF sertraline 50 mg tablet 50 mg PO DAILY Qty: 90 3RF metformin 500 mg tablet extended release 24 hr 500 mg PO QAM Qty: 90 4RF losartan 50 mg tablet 50 mg PO DAILY Qty: 90 4RF Discharge Instructions Stand Alone Forms: Post-op Topical Cataract, Owen Kaye (DSU) Discharge Orders Discharge Orders: Discharge Order (Routine); Ordered 09/29/21 Ordered By: Gavin Fletcher DS: Diagnosis Discharge Diagnosis (1) Posterior subcapsular age-related cataract, right eye: Status: Resolved (2) Nuclear sclerotic cataract of right eye: Status: Resolved
--- NOTE | 2021-09-29 11:34 | ROE_ITS ---
Date of service: 09/29/21 Time of Service: 11:34 Operative Note Operative Note DATE OF PROCEDURE: 09/29/21 PRE-OP DIAGNOSIS: Nuclear/posterior subcapsular cataract, right eye POST-OP DIAGNOSIS: same PROCEDURE: Cataract extraction using phacoemulsification with intraocular lens implant, right eye SURGEON: Gavin Fletcher ANESTHESIA TYPE: Local By Surgeon and MAC Refer to Anesthesia Record ESTIMATED BLOOD LOSS: 0 PATHOLOGY: none sent COMPLICATIONS: None Patient was transported to: same day Patient's condition: stable Implants: Ayush & Ayush/WINSTON Tecnis [id number] Indications: Progressive visual loss due to cataract, right eye Procedure Description: CATARACT SURGERY OPERATIVE REPORT PREOPERATIVE DIAGNOSIS: 1. Nuclear/posterior subcapsular cataract, right eye POSTOPERATIVE DIAGNOSIS: Same OPERATION: 1. Cataract extraction using phacoemulsification with posterior chamber intraocular lens implant, right eye. IOL: IOL Overhead Cleaner Maintainer/Model: Ayush & Ayush / WINSTON Tecnis [id number] IOL Power: + 15.0 diopters IOL Serial Number: [id number] Optic Diameter: 6.0mm Haptic/Overall Diameter: 13.0mm PHACO INFO: Harley Infinisourceurion Vision System with OZil and Active Fluidics Cumulative Dispersed Energy (CDE): 11.01 seconds SURGEON: Gavin Fletcher MD, ARAM ANESTHESIA: Monitored Anesthesia Care (MAC), with local sub-tenon's anesthetic infiltration COMPLICATIONS: None SPECIMENS: None INDICATIONS FOR PROCEDURE: The patient is a 66-year-old lady with history of diminished visual acuity in both eyes secondary to the development of bilateral nuclear/posterior subcapsular cataract. She has already undergone cataract surgery in her left eye and is doing well postoperatively. She now presents for cataract surgery in the right eye. PROCEDURE: The correct surgical eye was identified and marked as the right eye and the pupil was dilated in the preoperative area using mydriatics and cycloplegics. The dilated pupil size was 7.0 mm. The patient elected to proceed without oral sedation. The patient was brought to the operating room where cardiopulmonary monitoring was instituted and surgical time-out was performed, confirming the correct operative eye and IOL power. Topical anesthesia was administered and ophthalmic povidone-iodine 5% was instilled into the conjunctival fornices. Lidocaine gel was applied to the cornea and the janelle-ocular area was prepped with Betadine 10% solution and draped in the usual sterile fashion for intraocular surgery, including an aperture drape. A Tegaderm transparent film dressing was cut in half and used to cover the lashes and lid margins. Care was taken to sequester the lashes and lid margins under the Tegaderm dressing. A lid speculum was placed between the lids of the operative eye and the Harley LuxOR Revalia operating microscope was maneuvered into position. Rodney scissors were then used to make a conjunctival buttonhole approximately 6mm posterior to the limbus in the inferonasal quadrant. Blunt dissection was carried out to expose bare sclera, and a blunt-tipped sub-tenon?s anesthesia cannula was introduced and passed posteriorly along the globe where non- preserved plain lidocaine was injected into posterior sub-Tenon?s space. A sideport knife was used to make a paracentesis port inferotemporally. Intraocular phenylephrine/lidocaine was injected into the anterior chamber. The anterior chamber was filled with viscoelastic. A keratome knife was used to construct a 2-plane near-clear corneal tunnel extending 2.0mm into clear cornea superiortemporally. A flap was raised on the anterior capsule and capsulorhexis forceps were used to complete a continuous curvilinear capsulorhexis of 5.5 mm. Balanced salt solution was then used to perform cortical cleaving hydrodissection and nuclear hydrodelineation until the lens could be freely rota brinda within the capsular bag. The lens nucleus was then disassembled and removed within the capsular bag and iris plane using phacoemulsification. Residual cortical material was removed using the I/A handpiece. The posterior capsule was carefully polished to remove as much residual lens epithelial cells as safely possible. The capsular bag was then inflated and the anterior chamber deepened with viscoelastic. The lens implant described above was inserted into the capsular bag using the WINSTON Laie Injector. A Kuglen hook was used to dial the IOL into position. Residual viscoelastic was then removed first from posterior to the IOL, then from the anterior chamber using the I/A handpiece. The lens implant was noted to center nicely within the capsular bag. The incisions were stromally hydrated, and the anterior chamber was reformed using BSS. Then 0.5cc of moxifloxacin 1.0mg/ml were injected into the capsular bag and anterior chamber. The incisions were checked with a Weck spear and found to be secure. Several drops of ophthalmic povidone-iodine 5% were then applied to the eye followed by two drops of Imprimis combination prednisolone/moxifloxacin/nepafenac solution. The drapes were removed and a clear plastic protective eye shield was placed over the eye. The patient was then returned to Same Day Surgery in stable condition.
--- NOTE | 2021-09-29 12:06 | W.ANESPOSTOP ---
Postoperative Evaluation Date, Time and Location Date Performed: 09/29/21 Time Performed: 11:32 Patient Location: Day Surgery Unit Vital Signs Most Recent Imported Vital Signs: Most Recent Vital Signs Temp Pulse Resp BP Pulse Ox 36.3 C L 83 16 128/73 95 09/29/21 11:32 09/29/21 11:32 09/29/21 11:32 09/29/21 11:32 09/29/21 11:32 Pain Score Most Recent Pain Score: Most Recent Pain Score Pain Level 0 09/29/21 11:32 Assessment Mental Status: Awake (Alert & Oriented to Patient Baseline) Airway and Respiratory Function: Patent airway with normal (patient baseline) respiratory exam Cardiovascular Function: Hemodynamically Stable Hydration Status: Adequately Hydrated Nausea & Vomiting: No Nausea or Vomiting Pain: Pt. Denies Any Pain Peripheral Nerve Block: Patient did not receive a nerve block
== END 2021-09-29 11:52 | disposition home or self-care (01) ==
PROVIDERS: Visit Provider Ophthalmology
PROC: (CPT 66984; principal; 2021-09-29 12:30)
DX: H25.811 Combined forms of age-related cataract, right eye (principal); E11.9 Type 2 diabetes mellitus without complications
CPT/HCPCS: 66984; V2632

== ENCOUNTER 2022-02-07 04:04 | Outpatient (CLI) | payer MEDICARE, SELFPAY ==
[2022-02-07 12:36] LABS: ALT 32 U/L (14-59); AST 20 U/L (15-37); Albumin 3.7 g/dL (3.4-5.0); Alkaline Phosphatase 85 U/L (46-116); Anion Gap 9.8 mmol/L (3-11); BUN 21 mg/dL (7-18); Bilirubin, Total 0.4 mg/dL (0.2-1.0); CO2 28.2 mmol/L (21.0-32.0); CREATININE 0.9 mg/dL (0.55-1.02); Calcium 9.4 mg/dL (8.5-10.1); Calculated LDL 85 mg/dL (<100); Chloride 102 mmol/L (98-107); Cholesterol 204 mg/dL (<200); Estimated GFR 69.64 (mL/min/1.73m2); Glucose 102 mg/dL (74-106); HDL Cholesterol 51 mg/dL (40-60); Potassium 3.4 mmol/L (3.5-5.1); Sodium 140 mmol/L (136-145); Total Protein 7.8 g/dL (6.4-8.2); Triglyceride 344 mg/dL (<150)
== END 2022-02-07 04:05 | disposition home or self-care (01) ==
LOC: LOS 04:09
PROVIDERS: PCP Nurse Practitioner Family; Visit Provider Nurse Practitioner Family
DX: E78.2 Mixed hyperlipidemia (principal)
CPT/HCPCS: 36415; 80053; 80061

== ENCOUNTER 2022-03-19 02:57 | Outpatient (CLI) | payer MEDICARE, SELFPAY ==
[2022-03-20 12:40] LABS: Estimated Average Glucose 128 mg/dL; Hemoglobin A1C 6.1 % (<5.7)
== END 2022-03-19 02:58 | disposition home or self-care (01) ==
LOC: LOS 02:57
PROVIDERS: PCP Nurse Practitioner Family; Visit Provider Nurse Practitioner Family
DX: E11.9 Type 2 diabetes mellitus without complications (principal)
CPT/HCPCS: 36415; 83036

== ENCOUNTER 2022-08-29 01:29 | Outpatient (CLI) | payer MEDICARE, SELFPAY ==
--- NOTE | 2022-08-29 07:45 | DI.MAMMO_ITS ---
Exam(s) MAMMO SCREENING EXAM: MAMMO SCREENING CLINICAL HISTORY: screening,z12.39 TECHNIQUE: Bilateral full field digital CC and MLO mammographic images were obtained with 3D tomosyn thesis and utilizing computer aided detection (CAD). COMPARISON: Available for comparison. FINDINGS: Masses/Architectural Distortion: None seen. Microcalcifications: No suspicious pleomorphic-type are seen. Skin Thickening/Nipple Retraction: None. IMPRESSION: 1. No significant interval change with no specific features of malignancy noted. 2. Unless there is more urgent need, screening mammography is recommended, as per [place] [employer] guidelines. BI-RADS Category 1 - Negative Breast Density - Category B - Scattered areas of fibroglandular density Breast density category C or D implies that the patient has dense breast tissue. Dense breast tissue is very common and is not abnormal but dense breast tissue can make it harder to find cancer on a ma mmogram. Also, dense breast tissue may increase their breast cancer risk. This information about the result of the mammogram report was provided to the patient to raise their awareness. Use this report when you speak with the patient about their risks for breast cancer, which includes their family hist ory. At that time, you may recommend for more screening tests (Ultrasound or MRI) as they might be us eful based on their risk. A negative radiographic report should not delay biopsy if a dominant or clinically suspicious mass is present. Up to ten percent of cancers are not identified on mammography. A negative report may reinforce clinical impression. Adenosis and dense breasts may obscure an underlying neoplasm. False positive reports average 6 to 10%. Patient will receive a letter notifying them of these results.
== END 2022-08-29 01:49 ==
PROVIDERS: PCP Nurse Practitioner Family; Visit Provider Nurse Practitioner Family
DX: Z12.31 Encounter for screening mammogram for malignant neoplasm of breast (principal)
CPT/HCPCS: 77063; 77067

== ENCOUNTER 2023-08-23 16:48 | Outpatient (REF) | payer OTHER, MEDICARE, SELFPAY ==
[2023-08-23 14:25] LABS: ALT 36 U/L (14-59); AST 21 U/L (15-37); Albumin 3.7 g/dL (3.4-5.0); Alkaline Phosphatase 90 U/L (46-116); Anion Gap 10.9 mmol/L (3-11); BUN 19 mg/dL (7-18); CO2 27.1 mmol/L (21.0-32.0); CREATININE 0.9 mg/dL (0.55-1.02); Calcium 9.5 mg/dL (8.5-10.1); Chloride 101 mmol/L (98-107); Cholesterol 184 mg/dL (<200); Estimated GFR 68.77 (mL/min/1.73m2); Glucose 118 mg/dL (74-106); HDL Cholesterol 46 mg/dL (40-60); Hemoglobin A1C 6.2 % (<5.7); Potassium 3.4 mmol/L (3.5-5.1); Sodium 139 mmol/L (136-145); Total Protein 7.7 g/dL (6.4-8.2); Triglyceride 440 mg/dL (<150)
[2023-08-23 15:33] LABS: LDL CHOLESTEROL 80 mg/dL (<100)
[2023-08-26 10:37] LABS: Hepatitis C Ab w Rflx HCV PCR Negative (Negative)
[2023-08-26 10:46] LABS: HIV-1/2 Ag & Ab Screen Negative (Negative)
== END 2023-08-23 16:49 | disposition home or self-care (01) ==
LOC: LBN 16:48
PROVIDERS: PCP Nurse Practitioner Family; Visit Provider Nurse Practitioner Family
DX: E78.2 Mixed hyperlipidemia (principal); Z11.4 Encounter for screening for human immunodeficiency virus [HIV]; E11.9 Type 2 diabetes mellitus without complications; Z11.59 Encounter for screening for other viral diseases
CPT/HCPCS: 80053; 80061; 83721; 86803; 87389; 83036

== ENCOUNTER → 2023-08-28 00:43 | Outpatient (CLI) | payer OTHER, MEDICARE, SELFPAY ==
--- NOTE | 2023-08-28 06:30 | DI.MAMMO_ITS ---
Exam(s) MAMMO SCREENING EXAM: MAMMO SCREENING CLINICAL HISTORY: screening,z12.39 TECHNIQUE: Mammograms were interpreted according to the usual protocol including computer analysis w [employer] CAD system, tomosynthesis and C-view imaging. COMPARISON: 2016 through 2022 FINDINGS: The breasts are composed of scattered fibroglandular densities, Breast Density category B. No suspicious masses or suspicious microcalcifications are seen. No skin thickening or abnormal axillary lymph nodes are seen. There has been no significant change from prior exams. IMPRESSION: BI-RADS Category 1, Negative mammogram Yearly screening mammography is recommended. Breast Density - Category B, scattered fibroglandular densities. A negative radiographic report should not delay biopsy if a dominant or clinically suspicious mass is present. Up to ten percent of cancers are not identified on mammography. A negative report may reinforce clinical impression. Adenosis and dense breasts may obscure an underlying neoplasm. False positive reports average 6 to 10%. Patient will receive a letter notifying them of these results.
== END ==
PROVIDERS: PCP Nurse Practitioner Family; Visit Provider Nurse Practitioner Family
DX: Z12.39 Encounter for other screening for malignant neoplasm of breast (principal)
CPT/HCPCS: 77063; 77067

== ENCOUNTER 2024-08-28 00:52 | Outpatient (CLI) | payer MEDICARE, SELFPAY ==
[2024-08-28 12:36] LABS: ALT 36 U/L (14-59); AST 21 U/L (15-37); Albumin 3.9 g/dL (3.4-5.0); Alkaline Phosphatase 107 U/L (46-116); Anion Gap 9.2 mmol/L (3-11); BUN 24 mg/dL (7-18); Bilirubin, Total 0.4 mg/dL (0.2-1.0); CO2 28.8 mmol/L (21.0-32.0); CREATININE 0.9 mg/dL (0.55-1.02); Calcium 9.9 mg/dL (8.5-10.1); Chloride 100 mmol/L (98-107); Cholesterol 211 mg/dL (<200); Estimated GFR 68.35 (mL/min/1.73m2); Glucose 122 mg/dL (74-106); HDL Cholesterol 48 mg/dL (>or=50); Potassium 3.2 mmol/L (3.5-5.1); Sodium 138 mmol/L (136-145); Total Protein 8.4 g/dL (6.4-8.2); Triglyceride 609 mg/dL (<150)
[2024-08-28 12:51] LABS: LDL CHOLESTEROL 80 mg/dL (<100)
== END 2024-08-28 00:53 | disposition home or self-care (01) ==
LOC: LOS 00:52
PROVIDERS: PCP Nurse Practitioner Family; Visit Provider Nurse Practitioner Family
DX: E78.2 Mixed hyperlipidemia (principal)
CPT/HCPCS: 36415; 80053; 80061; 83721

== ENCOUNTER 2024-10-01 02:00 | Outpatient (CLI) | payer MEDICARE, SELFPAY ==
--- NOTE | 2024-10-01 08:30 | DI.MAMMO_ITS ---
Exam(s) MAMMO SCREENING EXAM: MAMMO SCREENING CLINICAL HISTORY: screening, Z12.39. TECHNIQUE: Bilateral full field digital CC and MLO mammographic images were obtained with 3D tomosynthesis and utilizing computer aided detection (CAD). COMPARISON: Prior mammograms were reviewed. FINDINGS: There has been no significant change in the appearance and distribution of the fibroglandular tissue. There are no new spiculated masses nor malignant appearing microcalcification groups. There is no significant architectural distortion nor skin thickening-retraction. IMPRESSION: No radiographic evidence of malignancy. BI-RADS Category 1 - Negative Breast Density - Category B - There are scattered areas of fibroglandular density. Breast density Category C or D implies that the patient has dense breast tissue. Dense breast tissue can make it harder to find cancer on a mammogram. Dense breast tissue is also associated with an increased risk of breast cancer. This information about the result of the mammogram report was provided to the patient to raise their awareness. Use this report when you speak with the patient about their risks for breast cancer, which includes their family history. At that time, you may recommend additional screening tests (Ultrasound or MRI) as these tests may add significant information. A negative radiographic report should not delay biopsy if a dominant or clinically suspicious mass is present. Up to ten percent of cancers are not identified on mammography. A negative report may reinforce clinical impression. Adenosis and dense breasts may obscure an underlying neoplasm. False positive reports average 6 to 10%. Patient will receive a letter notifying them of these results.
--- NOTE | 2024-10-01 08:30 | DI.DEXA_ITS ---
Exam(s) XR DEXA BONE DENSITY W/WO TOBI EXAM: XR DEXA BONE DENSITY W/WO TOBI CLINICAL HISTORY: screening for osteoporosis, Z78.0 TECHNIQUE: Thar Geothermal C densitometer analysis of left hip, lumbar spine and left forearm. Lateral survey image of the thoracic and lumbar spine. COMPARISON: No exams were available for comparison FINDINGS: Lateral view of the thoracic and lumbar spine shows no evidence of compression fractures. Bone mineral density measurements of the lumbar spine correspond to a total T- score of -0.5, in the normal range. Bone mineral density measurements of the left hip correspond to a total T-score of -1.3. The femoral neck T-score is -2.0, in the osteopenic range.. Theleft forearm bone mineral density measurements correspond to a T-score of the distal 3rd of -1.3, in the osteopenic range.. IMPRESSION: Normal bone mineral density of the lumbar spine. Osteopenia of the hip and forearm.
== END 2024-10-01 02:20 ==
LOC: DI 02:00
PROVIDERS: PCP Nurse Practitioner Family; Visit Provider Nurse Practitioner Family
DX: Z12.31 Encounter for screening mammogram for malignant neoplasm of breast (principal); Z78.0 Asymptomatic menopausal state; E78.2 Mixed hyperlipidemia; M81.0 Age-related osteoporosis without current pathological fracture
CPT/HCPCS: 77063; 77067; 77080

== ENCOUNTER → 2024-11-05 09:39 | Outpatient (BNVA) | payer MEDICARE, SELFPAY | PROVIDERS: PCP Nurse Practitioner Family; Referring Provider Nurse Practitioner Family; Visit Provider Physical Therapy Assistant | DX: Z12.11 Encounter for screening for malignant neoplasm of colon (principal); E11.59 Type 2 diabetes mellitus with other circulatory complications; I10 Essential (primary) hypertension; Z86.0101 Personal history of adenomatous and serrated colon polyps | CPT/HCPCS: 99024 ==

== ENCOUNTER 2024-11-18 06:12 | Day surgery (SDC) | payer MEDICARE, SELFPAY ==
--- NOTE | 2024-11-17 18:01 | W.ANESPRE ---
General Info Date of Service Date Performed: 11/18/24 Height: 5 ft Weight: 60.781 kg Body Mass Index (BMI): 26.2 Surgical Procedure: Operation Date: 11/18/24 07:35 Proposed Procedure Side Surgeon brent Taylor MD Meds Allergies and Home Medications Allergies Allergy/AdvReac Type Severity Reaction Status Date / Time No Known Allergies Allergy Verified 11/18/24 06:28 Home Medication ?Medication ?Instructions ?Recorded lancets 33 gauge #100 ea 08/23/23 albuterol sulfate 90 mcg/actuation 2 puff inhalation QID PRN 04/01/24 aerosol inhaler shortness of breath or wheezing #8.5 grams blood sugar diagnostic (Blood #100 ea 08/25/24 Glucose Test strips) hydrochlorothiazide 25 mg tablet 25 mg PO DAILY #90 tab-caps 08/25/24 losartan 50 mg tablet 50 mg PO DAILY #90 tab-caps 08/25/24 metformin 500 mg tablet,extended 500 mg PO QAM #90 tabs 08/25/24 release 24 hr bisacodyl 5 mg tablet,delayed 5 mg PO ONCE #4 tabs 11/05/24 release (Dulcolax (bisacodyl)) polyethylene glycol 3350 17 17 g PO ONCE #238 grams 11/05/24 gram/dose oral powder atorvastatin 40 mg tablet 40 mg PO DAILY #90 tabs 11/16/24 sertraline 50 mg tablet 50 mg PO DAILY #90 tabs 11/16/24 Current Visit Medications: Current Medications Generic Name Dose Route Start Last Admin Trade Name Freq PRN Reason Stop Dose Admin Ringer's Solution 1,000 mls @ 80 mls/hr 11/18/24 06:00 IV 11/18/24 23:59 INFUSION RUBI IV Miscellaneous Supplies 1 each 11/18/24 06:00 Iv Access IV 11/18/24 23:59 DIRECTED RUBI Sodium Chloride 0 ml 11/18/24 06:00 Normal Saline Flush 10 Ml Syr IV 11/18/24 23:59 PRN PRN Sodium Chloride 0 ml 11/18/24 06:00 Normal Saline 10 Ml Vial IJ 11/18/24 23:59 DIRECTED PRN Sterile Water 0 ml 11/18/24 06:00 Water,Injection,Sterile 10 Ml Vial IJ 11/18/24 23:59 DIRECTED PRN PFSH Active Problems Active Problems: Problem Status Onset Code Decreased hearing Acute H91.90 Posterior subcapsular age-related cataract, right eye Resolved H25.041 Nuclear sclerotic cataract of right eye Resolved H25.11 Posterior subcapsular age-related cataract of left eye Resolved H25.042 Nuclear sclerotic cataract of left eye Resolved H25.12 Tubulovillous adenoma of colon Chronic 08/22/16 D12.6 Hyperlipidemia Chronic 05/06/08 E78.5 Essential hypertension Chronic 05/16/16 I10 Diabetes mellitus Chronic 05/06/08 E11.9 Medical History Medical History Sinus infection Pneumonia CAP (community acquired pneumonia) Surgical History Surgical History History of uvulectomy pt .reports L side of nose procedure at same time Hx of tubal ligation Colonoscopy - MAC (08/22/16) Tobacco Smoking/Tobacco Use Status: Never Passive smoking exposure: No Second hand exposure: No Alcohol Alcohol Intake: former Substance Use Substance use: Never Substance use type: does not use Counseling provided: none Details: alcohol: joseline Vital Signs and Lab Results Vital Signs Most Recent Vital Signs in EMR: Temp Pulse Resp BP Pulse Ox 36.6 C 95 H 16 129/88 97 11/18/24 06:30 11/18/24 06:30 11/18/24 06:30 11/18/24 06:30 11/18/24 06:30 Anesthesia Assessment and Plan Anesthesia History Personal History: No History of Anesthesia Complications Family History: No Family History of Anesthesia Complications Exercise Tolerance Exercise Tolerance: Metabolic Equivalents>4 Cardiac & Pulmonary Exam Cardiac Exam: Normal S1/S2 Heart Sounds Pulmonary Exam: Clear Bilateral Breath Sounds Implantable Cardiac Device Does patient have a Pacemaker or an ICD?: No Airway Exam Known Difficult Airway: No Mallampati Class: 3 Mouth Opening: Narrow (< 3cm) Thyromental Distance: Greater than 3 cm Neck Range of Motion: Full ROM Neck Circumference: Normal Teeth Condition: Normal Dentition ASA Classification ASA Score: ASA 2 Emergency Case?: No NPO Status NPO Status: NPO Clears >2 hours, Solids >8 hours Anesthesia Plan Resuscitation Status: Full Code Anesthesia Technique: General Anesthesia Airway Planned: Natural Airway Monitors Used: Standard Monitors Preoperative Comments:: 69 yo for colo. Sig PMHx: HTN (HCTZ, losartan. checks at homes, states she runs high - 170s), RAD (albuterol while sick), DM (metformin. last A1c ~6), never smoker, former EtOH. Previous Anes: - colo, propofol, natural airway, glyco for HR 37.
[2024-11-18 06:30] VITALS: BP 129/88; PULSE 95; RESP 16; TEMP 36.6; O2SAT 97
[2024-11-18] MEDS: Lactated Ringers 1,000 ML 80 ML IV (06:45)
[2024-11-18 07:04] VITALS: BMI 26.2
--- NOTE | 2024-11-18 07:44 | BOWEL_PTH ---
PATIENT: Khushi Toth LOC: [facility] U#:[id number] AGE/SX: 69/F ROOM: RE11/18/[address]: Aline Taylor : 1955 BED: DIS: 11/18/2024 SPEC #: [id number] RECD: 11/18/24 12:28 STATUS: [place] REQ #: [id number] CONSUELO: 11/18/24 07:[address]: Aline Taylor DEPT: Surgical Specimen RECD BY: Josephine Burnett ENTERED: 11/18/24 12:29 SP TYPE: Bowel OTHR DR: Jake Alvarez DNP Tissues: 1 - BIOPSY BOWEL Procedures: GROSS AND MICRO LEVEL 4 Comments: [id number]
[2024-11-18 07:55] VITALS: BP 104/68; PULSE 85; RESP 16; TEMP 36.5; O2SAT 95
--- NOTE | 2024-11-18 08:01 | W.ANESPOSTOP ---
Postoperative Evaluation Date, Time and Location Date Performed: 11/18/24 Time Performed: 08:01 Patient Location: Day Surgery Unit Vital Signs Most Recent Imported Vital Signs: Most Recent Vital Signs Temp Pulse Resp BP Pulse Ox 36.5 C 85 16 104/68 95 11/18/24 07:55 11/18/24 07:55 11/18/24 07:55 11/18/24 07:55 11/18/24 07:55 Pain Score Most Recent Pain Score: Most Recent Pain Score Pain Level 0 11/18/24 07:55 Assessment Mental Status: Awake (Alert & Oriented to Patient Baseline) Airway and Respiratory Function: Patent airway with normal (patient baseline) respiratory exam Cardiovascular Function: Hemodynamically Stable Hydration Status: Adequately Hydrated Nausea & Vomiting: No Nausea or Vomiting Pain: Pt. Denies Any Pain Peripheral Nerve Block: Patient did not receive a nerve block
--- NOTE | 2024-11-18 08:03 | W.COLOREPORT ---
Date of service: 11/18/24 Time of Service: 08:03 Colonoscopy Report Date of procedure: 11/18/24 Pre-op diagnosis general: Surveillance colonoscopy, history of polyps Post-op diagnosis procedure note: other (Colon polyps, diverticulosis) Procedure: Colonoscopy, polypectomy Surgeon: Aline Taylor Anesthesia Type: General:No Airway Estimated blood loss (mL): 2 Pathology: other (Colon polyp 75cm ) Complications: None Disposition: PACU Indications: Patient is a 69-year-old female who presents for surveillance colonoscopy given history of polyps. Prep: Dulcolax Procedure Start Time: :31 Procedure End Time: 07:51 Retraction Time: 10 Findings: Diverticulosis of the sigmoid colon. Small polyp at 75 cm removed with cold forceps. Procedure Description: The patient was brought to the endoscopy suite and placed in the left lateral decubitus position. After induction of IV sedation, a digital rectal exam was performed.. Digital exam was normal. The colonoscope was then passed to the cecum. Cecal intubation was confirmed by the identification of the appendiceal orifice and the ileocecal valve. Upon withdrawing the colonoscope, all mucosal surfaces were inspected. The prep was noted to be adequate. The was a small polyp at 75cm, which was removed using cold forceps in its entirety. Specimen was retrieved for pathological analysis. There was evidence of diverticulosis of the sigmoid colon. There was no other evidence of mucosal abnormality, polyp or cancer. Retroflexion in the rectum was unremarkable.The patient tolerated the procedure well with no complications. Postoperatively, the patient was transferred to the recovery room in stable condition. [place] Bowel Prep [place] Bowel Prep Right Colon: 3 Left Colon: 3 Transverse Colon: 3 Total Score: 9
[2024-11-18 08:26] VITALS: BP 126/71; PULSE 86; RESP 16; TEMP 36.5; O2SAT 94
== END 2024-11-18 08:41 | disposition home or self-care (01) ==
PROVIDERS: PCP Nurse Practitioner Family; Visit Provider Student in an Organized Health Care Education/Training Program
PROC: 0DJD8ZZ Inspection of Lower Intestinal Tract, Via Natural or Artificial Opening Endoscopic (ICD-10-PCS; CPT 45378; principal; 2024-11-18 07:30)
DX: Z12.11 Encounter for screening for malignant neoplasm of colon (principal); I10 Essential (primary) hypertension; E11.9 Type 2 diabetes mellitus without complications; D12.4 Benign neoplasm of descending colon; K57.30 Diverticulosis of large intestine without perforation or abscess without bleeding
CPT/HCPCS: 45380; 00123; 88305; J2704